=== PATIENT | male | born 1985 | race Caucasian/White ===

== ENCOUNTER 2017-07-10 06:28 | Emergency (ER) | payer MEDICAID ==
[~2017-07-10] VITALS: Ht 172.7 cm; Wt 81.8 kg
[2017-07-10 06:34] VITALS: BP 106/69
[2017-07-10] MEDS ORDERED: dexamethasone 0.5 mg/5ml unit-dose oral solution PO STA (09:16)
[2017-07-10] MEDS ORDERED: dexamethasone sod phosphate 10mg/ml inj PO STA (09:18)
[2017-07-10] MEDS ORDERED: AMOX-580 PO (09:21)
== END 2017-07-10 09:42 | disposition home or self-care (01) ==
LOC: ER 06:30
DX: H66.92 Otitis media, unspecified, left ear (principal); F15.10 Other stimulant abuse, uncomplicated; F11.10 Opioid abuse, uncomplicated; Z79.899 Other long term (current) drug therapy
CPT/HCPCS: 99283; J1100; J8540

== ENCOUNTER 2017-07-13 13:56 | Emergency (ER) | payer MEDICAID ==
[~2017-07-13] VITALS: Ht 172.7 cm; Wt 65.4 kg
[~2017-07-13 13:56] MED LIST: AMOX-580 PO
[2017-07-13 14:04] VITALS: BP 127/99
== END 2017-07-13 14:16 | disposition home or self-care (01) ==
LOC: ER 13:56
DX: Z02.89 Encounter for other administrative examinations (principal); F15.10 Other stimulant abuse, uncomplicated; F17.200 Nicotine dependence, unspecified, uncomplicated; Z79.899 Other long term (current) drug therapy; Z56.0 Unemployment, unspecified
CPT/HCPCS: 99281

== ENCOUNTER 2017-09-23 20:13 | Emergency (ER) | payer MEDICAID ==
[~2017-09-23] VITALS: Ht 172.7 cm; Wt 73.0 kg
[2017-09-23 21:40] VITALS: BP 125/80
== END 2017-09-23 21:40 | disposition home or self-care (01) ==
LOC: ER 20:13
DX: F12.10 Cannabis abuse, uncomplicated (principal); F15.10 Other stimulant abuse, uncomplicated; F17.200 Nicotine dependence, unspecified, uncomplicated
CPT/HCPCS: 99281

== ENCOUNTER 2017-09-28 17:39 | Emergency (ER) | payer MEDICAID ==
[~2017-09-28] VITALS: Ht 172.7 cm; Wt 69.0 kg
[2017-09-28 17:49] VITALS: BP 135/87
== END 2017-09-28 19:02 | disposition home or self-care (01) ==
LOC: ER 17:39
DX: F11.20 Opioid dependence, uncomplicated (principal); F12.90 Cannabis use, unspecified, uncomplicated; F15.90 Other stimulant use, unspecified, uncomplicated; Z56.0 Unemployment, unspecified
CPT/HCPCS: 99281

== ENCOUNTER 2018-11-15 17:10 | Emergency (ER) | payer SELFPAY ==
[~2018-11-15] VITALS: Ht 172.7 cm; Wt 77.3 kg
[2018-11-15 17:34] VITALS: BP 115/79
== END 2018-11-15 18:25 | disposition home or self-care (01) ==
LOC: ER 17:11
DX: S90.821A Blister (nonthermal), right foot, initial encounter (principal); F12.90 Cannabis use, unspecified, uncomplicated; F15.90 Other stimulant use, unspecified, uncomplicated; F11.90 Opioid use, unspecified, uncomplicated; X58.XXXA Exposure to other specified factors, initial encounter; Y93.89 Activity, other specified; Y92.89 Other specified places as the place of occurrence of the external cause; Y99.9 Unspecified external cause status
CPT/HCPCS: 99281

== ENCOUNTER 2019-04-03 10:01 | Emergency (ER) | payer MEDICAID ==
[~2019-04-03] VITALS: Ht 172.7 cm; Wt 72.7 kg
[2019-04-03 10:11] VITALS: BP 141/79
[2019-04-03] MEDS ORDERED: buprenorphine/naloxone 8MG-2MG SUBlingual film SL STA (10:29)
[2019-04-03] MEDS ORDERED: buprenorphine/naloxone 8mg/2mg SL tablet SL STA (10:29)
[2019-04-03] MEDS ORDERED: BUPR1FIL3 SL (10:35)
== END 2019-04-03 11:12 | disposition home or self-care (01) ==
LOC: ER 10:02
DX: F11.10 Opioid abuse, uncomplicated (principal); F12.90 Cannabis use, unspecified, uncomplicated; F15.90 Other stimulant use, unspecified, uncomplicated; Z76.0 Encounter for issue of repeat prescription
CPT/HCPCS: 99283

== ENCOUNTER 2022-02-11 20:05 | Emergency (ER) | payer MEDICAID ==
[~2022-02-11] VITALS: Ht 182.9 cm; Wt 77.3 kg
== END 2022-02-11 20:34 ==
LOC: ER 20:06
DX: F10.129 Alcohol abuse with intoxication, unspecified (principal); F12.90 Cannabis use, unspecified, uncomplicated; F15.90 Other stimulant use, unspecified, uncomplicated; F11.90 Opioid use, unspecified, uncomplicated; F19.90 Other psychoactive substance use, unspecified, uncomplicated; Z91.199 Patient's noncompliance with other medical treatment and regimen due to unspecified reason; Y90.9 Presence of alcohol in blood, level not specified
CPT/HCPCS: 99283

== ENCOUNTER 2024-11-11 13:56 | Emergency (ER) | payer MEDICAID ==
[~2024-11-11] VITALS: Ht 172.7 cm; Wt 64.3 kg
[2024-11-11 14:10] VITALS: BP 122/71; PULSE 72; RESP 18; TEMP 98; O2SAT 100
[2024-11-11] MEDS ORDERED: BUPR1FIL3 SL (14:56)
--- NOTE | 2024-11-11 14:58 | Physician Documentation ---
HPI ~ General Chief Complaint: Medication Request Stated Complaint: MED REQUEST Time Seen by MD: 14:58 History of Present Illness HPI Comments 35-year-old male missed appointment for Suboxone refill has it on placement in a few days requesting refill to bridge until next appointment Medication Reconciliation Allergies: Coded Allergies: No Known Allergies (Unverified , 09/23/17) Scheduled Buprenorphine Hcl/Naloxone Hcl (Suboxone 8 Mg-2 Mg Sl Film), 1 STRIP SL TID Past Medical History Past Medical History: No Pertinent History Past Surgical History: noncontributory Alcohol Use: Rarely Drug Use: marijuana, methamphetamine, heroin, other Lives In: Home Occupation: employed Review of Systems All Other Systems at this time: Reviewed and Negative Physical Exam Physical Exam Vital Signs: Temperature: 98.0, Source: Temporal, Heart Rate: 72, Respiratory Rate: 18, BP: 122/71, Pulse Oximetry: 100, Weight: 64.350 Oxygen Flow Rate: 0 Physical Exam General: Alert, no apparent distress. Respiratory: Lungs clear, no respiratory distress. Chest: No accessory muscle use. Cardiovascular: Regular rate and rhythm, no murmurs. Neurologic: Oriented x4. Psychiatric: Normal mood and affect. Skin: Normal color, warm and dry. No edema, no ecchymosis. Progress Results/Orders Results/Orders Vital Signs 11/11/24 14:10 Temp 98.0 Pulse 72 Resp 18 B/P (MAP) 122/71 Pulse Ox 100 O2 Flow Rate 0 Medical Decision Making Findings Medication refilled Departure Time of Disposition: 14:54 Disposition: 01 HOME / SELF CARE / HOMELESS Impression: Primary Impression: General medical exam Condition: Stable Discharge Instructions: Medicine Refill at the Emergency Department Additional Instructions: Take medication as prescribed and maintain apt Referrals: NO PRIMARY CARE PROVIDER (PCP) Prescriptions Buprenorphine Hcl/Naloxone Hcl (Suboxone 8 Mg-2 Mg Sl Film) 8 Mg-2 Mg Film 1 STRIP SL TID for 6 Days, #18 STRIP Prov: YARITZA GOLDSTEIN NP 11/11/24 Education Educated: Patient Educated regarding: diagnosis, treatment, need for follow up Signature Scribe Signature: No scribeThe note accurately reflects work and decisions made by me.Yaritza ESPARZA 11/11/24 23:15 Attestation: The note accurately reflects work and decisions made by me.Yaritza Garcias VILMA 11/11/24 23:16 YARITZA GOLDSTEIN NP Nov 11, 2024 14:58
== END 2024-11-11 15:05 | disposition home or self-care (01) ==
LOC: ER 13:57
DX: Z00.8 Encounter for other general examination (principal); Z76.0 Encounter for issue of repeat prescription
CPT/HCPCS: 99281

== ENCOUNTER 2025-01-23 16:13 | Emergency (ER) | payer MEDICAID ==
[~2025-01-23] VITALS: Ht 170.2 cm; Wt 65.5 kg
[2025-01-23 16:17] VITALS: BP 117/75; PULSE 87; RESP 18; TEMP 97.9; O2SAT 100
[2025-01-23] MEDS: proparacaine 0.5% ophthalmic drops 15ml EACHEYE ONE (16:57)
[2025-01-23] MEDS: fluorescein sod 1mg ophthalmic strip EACHEYE ONE (16:57)
[2025-01-23] MEDS ORDERED: OFLO5DRO LEFTEYE (17:38)
[2025-01-23] MEDS ORDERED: KETO5DRO LEFTEYE (17:38)
--- NOTE | 2025-01-23 17:40 | Physician Documentation ---
History of Present Illness General Chief Complaint: Foreign body Stated Complaint: SOMETHING IN MY EYE Time Seen by MD: 16:36 History of Present Illness Initial Comments 89-year-old male presents to the emergency department with a suspected foreign body in the left eye after working with a metal yesterday. Medication Reconciliation Allergies: Coded Allergies: No Known Allergies (Unverified , 09/23/17) Scheduled Ketorolac Tromethamine (Acular), 1 DROP LEFTEYE Q6H Ofloxacin Opth.* (Ofloxacin Opth.*), 1 DROP LEFTEYE Q6H Past Medical History Past Medical History: No Pertinent History Past Surgical History: noncontributory Alcohol Use: Rarely Drug Use: marijuana, methamphetamine, heroin, other Lives In: Home Occupation: employed Review of Systems All Other Systems at this time: Reviewed and Negative Eyes Obvious foreign body at the 8 o'clock position of the left eye Physical Exam Physical Exam Vital Signs: Temperature: 97.9, Source: Temporal, Heart Rate: 87, Respiratory Rate: 18, BP: 117/75, Pulse Oximetry: 100, Weight: 65.500 Oxygen Flow Rate: 0 General Appearance: alert, WD/WN, mild distress Head: normal inspection Face: normal inspection Pupils/EOM/Fundus: PERRLA, other (Obvious foreign body at 8 o'clock position left eye) Respiratory: normal breath sounds Chest: no accessory muscle use Cardiovascular: normal peripheral pulses Extremities: normal range of motion Neurologic: oriented x4 Psychiatric: normal mood/affect Skin: normal color Progress Results/Orders Results/Orders Completed Orders - ANDREWS WAKEFIELD Proparacaine Ophth Solution (Alcaine Oph (01/23/25 16:35) Fluorescein 1mg Ophthal Strip (Ful-Alesia O (01/23/25 16:35) Vital Signs 01/23/25 16:17 Temp 97.9 Pulse 87 Resp 18 B/P (MAP) 117/75 Pulse Ox 100 O2 Flow Rate 0 Medical Decision Making Differential Diagnosis ED course: Proparacaine for topical anesthetic. With a 18. Gauge needle the foreign body was removed. Small rust ring remains. Patient discharged to follow up with Ophthalmology. Patient is provided prescription for ofloxacin and Acular. Departure Disposition: HOME / SELF CARE / HOMELESS Impression: Primary Impression: Left corneal abrasion Qualified Codes: S05.02XA - Injury of conjunctiva and corneal abrasion wit hout foreign body, left eye, initial encounter Additional Impression: Foreign body in eyeball, left Qualified Codes: S05.52XA - Penetrating wound with foreign body of left eyeball, initial encounter Condition: Improved Discharge Instructions: Corneal Abrasion, [id number] Additional Instructions: Please begin medications as directed & make a follow up appointment with the sales service coordinator/seafood service team member for additional management. Thank you for visiting emergency department [facility]. Referrals: NO PRIMARY CARE PROVIDER (PCP) Prescriptions Ofloxacin Opth.* (Ofloxacin Opth.*) 5 Ml Bottle 1 DROP LEFTEYE Q6H for 7 Days, #5 ML Prov: ANDREWS WAKEFIELD PAC 01/23/25 Ketorolac Tromethamine (Acular) 0.5 % Drops 1 DROP LEFTEYE Q6H for pain, #5 ML 0 Refills Prov: ANDREWS WAKEFIELD PAC 01/23/25 Education Educated: Patient Educated regarding: diagnosis, treatment Signature Scribe Signature: . Attestation: . ANDREWS WAKEFIELD PAC Jan 23, 2025 17:40
== END 2025-01-23 17:51 | disposition home or self-care (01) ==
LOC: ER 16:13
DX: S05.02XA Injury of conjunctiva and corneal abrasion without foreign body, left eye, initial encounter (principal); F12.90 Cannabis use, unspecified, uncomplicated; F15.90 Other stimulant use, unspecified, uncomplicated; F11.90 Opioid use, unspecified, uncomplicated; F19.90 Other psychoactive substance use, unspecified, uncomplicated; X58.XXXA Exposure to other specified factors, initial encounter; Y93.89 Activity, other specified; Y92.89 Other specified places as the place of occurrence of the external cause; Y99.8 Other external cause status
CPT/HCPCS: 65220; 99284

== ENCOUNTER 2025-02-16 22:13 | Emergency (ER) | payer MEDICAID ==
[~2025-02-16] VITALS: Ht 172.7 cm; Wt 68.0 kg
[~2025-02-16 22:13] MED LIST changes: -AMOX-580 PO; +KETO5DRO LEFTEYE
[2025-02-17 00:11] VITALS: BP 137/74; PULSE 78; RESP 18; TEMP 97.2; O2SAT 99
--- NOTE | 2025-02-17 00:28 | Physician Documentation ---
HPI ~ General Chief Complaint: Medication Request Stated Complaint: MED REQUEST Time Seen by MD: 00:17 History of Present Illness HPI Comments Is a 39-year-old male that presents to the emergency department for medication refill. Patient reports that he takes Suboxone 8 mg t.i.d.. Patient reports that he lost his Suboxone he can not find it anywhere he has been without it for a couple of days does not have another appointment until the . Discussed with the patient inability to present prescribe him any Suboxone at this time. Agreed to give patient 1 dose here in the emergency department and have him follow up with his primary care provider. Medication Reconciliation Allergies: Coded Allergies: No Known Allergies (Unverified , 02/16/25) Scheduled Ketorolac Tromethamine (Acular), 1 DROP LEFTEYE Q6H Past Medical History Past Medical History: No Pertinent History Past Surgical History: noncontributory Alcohol Use: Rarely Drug Use: marijuana, methamphetamine, heroin, other Lives In: Home Occupation: employed Review of Systems ROS As stated above in the HPI, otherwise all systems are reviewed and negative. Physical Exam Physical Exam Vital Signs: Temperature: 97.2, Source: Temporal, Heart Rate: 78, Respiratory Rate: 18, BP: 137/74, Pulse Oximetry: 99, Weight: 68.000 Oxygen Flow Rate: 0 Physical Exam VITALS: Reviewed and as above. GENERAL: Alert, no apparent distress. HEENT: Normocephalic, atraumatic, PERRL, EOMI, dry mucosa, no erythema RESPIRATORY: Lungs clear, normal breath sounds, no respiratory distress. CHEST: No accessory muscle use, no retractions CV: Regular rate, rhythm, no edema, no murmur, No: JVD GI: Soft, non-tender, bowels sounds present, no rebound, guarding, or rigidity BACK: No CVA tenderness, or swelling MUSCULOSKELETAL No deformities, no edema SKIN: Warm and dry, no rash NEURO: Oriented x4, No motor or sensory deficit PSYCH: Normal mood and affect, no agitation Progress Results/Orders Results/Orders Orders - LEIA PRATER GLASS WASHER Buprenorphine/Naloxone Sl Film (Suboxone (02/17/25 00:25) Vital Signs 02/16/25 02/17/25 22:13 00:11 Temp 97.2 97.2 Pulse 103 78 Resp 20 18 B/P (MAP) 134/82 137/74 (95) Pulse Ox 100 99 O2 Flow Rate 0 0 Medical Decision Making Additional information obtaine: other Findings Presents to the emergency department for a medication refill. Patient is given 8 mg of Suboxone here in the emergency department. Explained to the patient we are unable to provide him with another prescription. He will have to follow up with his primary care provider as soon as he is able. Patient will return to the emergency department with any worsening of his current symptoms or any add itional concerning symptoms that we discussed here today. Differential Dx:Considerations: Include: Adverse circumstances, Economic, Psychosocial, Medical services unavail., Medication refill, Medication non- compliance, Other Departure Disposition: 01 HOME / SELF CARE / HOMELESS Impression: Primary Impression: General medical exam Additional Impression: Medication refill Condition: Stable Discharge Instructions: Medicine Refill at the Emergency Department Additional Instructions: Presents to the emergency department for a medication refill. Patient is given 8 mg of Suboxone here in the emergency department. Explained to the patient we are unable to provide him with another prescription. He will have to follow up with his primary care provider as soon as he is able. Patient will return to the emergency department with any worsening of his current symptoms or any additional concerning symptoms that we discussed here today. Referrals: NO PRIMARY CARE PROVIDER (PCP) Education Educated: Patient Educated regarding: diagnosis, treatment, need for follow up Signature Scribe Signature: A Attestation: Scribed for Leia Prater by VILMA Oliveros . 02/17/25 00:28 LEIA PRATER Feb 17, 2025 00:28
[2025-02-17] MEDS: buprenorphine/naloxone 8MG-2MG SUBlingual film SL SCH (00:33)
== END 2025-02-17 00:36 | disposition home or self-care (01) ==
LOC: ER 22:13
DX: Z00.00 Encounter for general adult medical examination without abnormal findings (principal); Z76.0 Encounter for issue of repeat prescription
CPT/HCPCS: 99283